=== PATIENT | male | born 1995 | race Caucasian/White ===

== ENCOUNTER 2016-10-10 21:50 | Emergency (ER) | payer OTHER ==
--- NOTE | ~2016-10-10 | ER ---
PATIENT'S NAME: SARAH HENLEY [facility] AGE: 21 Y [address] ROOM: [place] [address] LOCATION: [facility] ADMIT DATE: 10/10/2016 ER/Outpatient Report DISCHARGE DATE: 10/10/2016 FAMILY PHYSICIAN: PHYSICIAN, NO ATTENDING PHYSICIAN: Sarah Nuñez Admission date and time documented on the medical record. I saw the patient at 2200 hours. CHIEF COMPLAINT: Rectal bleeding. HISTORY OF PRESENT ILLNESS: The patient is a 21-year-old male who 10 days ago gave himself an enema. The day he did that he had no problems with bowel movements, the next following day he started to have some bleeding with bowel movement and since that time he has had bright red blood with each bowel movement. Painless bleeding. No abdominal pain. No nausea or vomiting. No urinary symptoms. No chest pain, shortness of breath. No history of bleeding disorders. HOME MEDICATIONS: See attached medication list. ALLERGIES: NONE. SOCIAL HISTORY: Nonsmoker. Occasional intake of alcohol. SIGNIFICANT PAST MEDICAL HISTORY: HIV. OPERATIONS: Left foot surgery, oral dental surgery, nasal surgery. REVIEW OF SYSTEMS: All systems reviewed by me are negative with the exception of those discussed in the history of present illness. PHYSICAL EXAMINATION: VITAL SIGNS: Temperature 98.4, tympanic; pulse 76; respirations 16; blood pressure 145/92; O2 saturation on room air is 97%. HEENT: Head, normocephalic. Eyes, clear. Ears, clear TMs bilaterally. Nose and throat, clear. Mucous membranes moist. NECK: Negative. PATIENT'S NAME: SARAH HENLEY [facility] AGE: 21 Y [address] ROOM: [place] [address] LOCATION: [facility] ADMIT DATE: 10/10/2016 ER/Outpatient Report DISCHARGE DATE: 10/10/2016 FAMILY PHYSICIAN: PHYSICIAN, NO ATTENDING PHYSICIAN: Sarah Nuñez LUNGS: Clear. HEART: Regular. ABDOMEN: Soft, nontender. Good bowel tones. No organomegaly or abnormal mass palpable. RECTAL: Negative. No external hemorrhoids or fissures. Did not get any stool on my gloved finger on exam. EXTREMITIES: Intact. NEUROVASCULAR: Intact. SKIN: Clear. LABORATORY DATA AND X-RAYS: White count is 10,300, 63 segs, 28 lymphs, 7 monos, 1 baso, 1 eosinophil. Hemoglobin is 14 with hematocrit 39.7, platelet count was 237,000. IMPRESSION: Rectal bleeding, etiology uncertain. PLAN: The patient dismissed home. Observation. Activity as tolerated. Increase fluid intake. Colace 100 mg once a day for 2 weeks. Anusol-HC suppositories one per rectum b.i.d. for 2 weeks. At the end of two weeks, he may need to have flex sigmoid or a colonoscopy. Follow up with personal physician in 2 weeks or sooner if needed. Discussion ensued with the patient concerning my findings and recommendations, he understands. MD VALARIE NINO/modl /[id number] d: 10/11/16 0304 t: 10/11/16 1809, OUTPATIENT REPORT
[2016-10-10 22:23] LABS: BASOPHIL # 0.1 K/uL (0.0-0.2); BASOPHIL % 0.5 %; EOSINOPHIL # 0.1 K/uL (0.0-0.5); EOSINOPHIL % 0.7 %; HEMATOCRIT 39.7 % (37.0-53.0); IMMATURE GRANULOCYTE % 0.2 %; LYMPHOCYTE # 2.9 K/uL (0.8-4.0); LYMPHOCYTE % 28.4 %; MCH 31.6 pg (27.0-34.0); MCHC 35.3 gm/dL (32.0-36.5); MCV 89.6 fl (83.0-98.0); MONOCYTE # 0.7 K/uL (0.0-1.0); NEUTROPHIL # (ANC) 6.5 K/uL (1.4-9.0); NEUTROPHIL % 63.2 %; NRBC % 0 /100WBC (0-0.00); PLATELET COUNT 237 K/uL (150-450); RBC 4.43 M/uL (4.00-6.00); RDW-CV 11.8 % (11.9-14.6); WBC 10.3 K/uL (4.0-11.0)
== END 2016-10-10 22:43 | disposition disaster alternative care site (69) ==
LOC: GMED 21:50
PROVIDERS: Emergency Medicine
DX: K62.5 Hemorrhage of anus and rectum (principal); Z21 Asymptomatic human immunodeficiency virus [HIV] infection status; Z98.890 Other specified postprocedural states

== ENCOUNTER 2016-10-15 13:49 | Emergency (ER) | payer OTHER ==
--- NOTE | ~2016-10-15 | ER ---
PATIENT'S NAME: SARAH HENLEY [facility] AGE: 21 Y [address] ROOM: [place] [address] LOCATION: [facility] ADMIT DATE: 10/15/2016 ER/Outpatient Report DISCHARGE DATE: 10/15/2016 FAMILY PHYSICIAN: PHYSICIAN, NO ATTENDING PHYSICIAN: Sarah Nuñez Time of Arrival: 1352. Time of Exam: 1352. CHIEF COMPLAINT: Rash. HISTORY OF PRESENT ILLNESS: The patient states he has a rash of the right forearm and chest area that all began 2 days ago. States he was diagnosed with strep throat four days ago and started on amoxicillin at that time. Denies having any itch of the rash. Does not had any drainage from it. He does have a history of being HIV positive but does not have AIDS and he is just concerned that he has sepsis because of this rash. He states he did have a fever two nights ago but has not had one for the past 24 hours. He has not felt short of breath. Does not have pain anywhere. His throat is little sore he states. ALLERGIES: NO KNOWN ALLERGIES. CURRENT MEDICATIONS: On the chart and reviewed by me. PAST MEDICAL HISTORY: HIV positive, diagnosed in 2013; anxiety; and strep throat. SOCIAL HISTORY: Lives here in town with his male partner. REVIEW OF SYSTEMS: All negative other than those mentioned in the HPI. PHYSICAL EXAMINATION: VITAL SIGNS: He weighed 78.8 kg. Blood pressure is 157/82, pulse of 102, respirations 22, temperature of 98, O2 saturation is 96% on room air. GENERAL: He is awake, alert, and oriented x4. SKIN: Mooar, warm, and dry. RESPIRATIONS: Even and nonlabored. TMs are clear. Nasal is clear. Oropharynx is red posteriorly. NECK: Supple. No lymphadenopathy. PATIENT'S NAME: SARAH HENLEY [facility] AGE: 21 Y [address] ROOM: [place] [address] LOCATION: [facility] ADMIT DATE: 10/15/2016 ER/Outpatient Report DISCHARGE DATE: 10/15/2016 FAMILY PHYSICIAN: PHYSICIAN, NO ATTENDING PHYSICIAN: Sarah Nuñez LUNGS: Lung sounds are clear throughout. HEART: Regular rate and rhythm. SKIN: The patient has a pinpoint red rash on the chest area and red pinpoint rash of the right forearm. No drainage from the rash is noted. LABORATORY DATA: CBC was completed, it is within normal limits. Chem panel was completed, it is within normal limits. Lactate was normal. IMPRESSION: Rash, probable related to the strep throat. PLAN: Discussed with patient the need to finish the antibiotic and take them as prescribed. Tylenol or ibuprofen as needed for fever or discomfort. He was given the names of several providers here in town as he has not established a primary provider and encouraged him to do that within the next 2-3 days. He verbalized understanding. ROSAURA MURPHY APRN FOR MD LULU NINO/leesa /[id number] d: 10/15/[id number] t: 10/17/16 1221, OUTPATIENT REPORT
[2016-10-15 14:20] LABS: HEMATOCRIT 40.6 % (37.0-53.0); HEMOGLOBIN 14.2 g/dL (12.0-17.0); MCH 31.8 pg (27.0-34.0); MCV 90.8 fl (83.0-98.0); MPV 10.2 fl (9.4-12.4); PLATELET COUNT 195 K/uL (150-450); RBC 4.47 M/uL (4.00-6.00); RDW-CV 11.9 % (11.9-14.6); WBC 7.4 K/uL (4.0-11.0)
[2016-10-15 14:44] LABS: ALBUMIN 4.4 gm/dL (3.5-5.0); ALK PHOS 71 IU/L (33-138); ALT 13 IU/L (12-78); ANION GAP 10.7 (10.0-19.0); AST 13 IU/L (10-40); BLOOD UREA NITROGEN 11 mg/dL (6-24); CHLORIDE 106 mMol/L (96-110); CO2 25 mMol/L (22-32); CREATININE 1.2 mg/dL (0.6-1.3); ESTIMATED GFR (MDRD EQUATION) > 60; POTASSIUM 3.7 mMol/L (3.7-5.1); SODIUM 138 mMol/L (135-145); TOTAL BILIRUBIN 0.3 mg/dL (0.0-1.5); TOTAL PROTEIN 8.4 g/dL (6.0-8.4)
[2016-10-15 14:55] LABS: ABSOLUTE NEUTROPHIL CT (ANC) 4.4 K/uL (1.4-9.0); LYMPHOCYTE # 2.1 K/uL (0.8-4.0); LYMPHOCYTE % 23 %; SEGMENTED NEUTROPHIL # 4.4 K/uL (1.4-9.0); SEGMENTED NEUTROPHIL % 59 %
== END 2016-10-15 15:17 | disposition disaster alternative care site (69) ==
LOC: GMED 13:49
PROVIDERS: Nurse Practitioner Family
DX: R21 Rash and other nonspecific skin eruption (principal); F41.9 Anxiety disorder, unspecified